=== PATIENT | female | born 1985 | race Two or more races ===

== ENCOUNTER 2024-02-03 20:14 | Emergency (ER) | payer MEDICAID, OTHER ==
[~2024-02-03] VITALS: Ht 149.9 cm; Wt 56.9 kg
[2024-02-03 20:22] VITALS: BP 124/77; PULSE 102; RESP 16; O2SAT 99
[2024-02-03 21:21] LABS: Urine Bacteria None Seen /hpf (None Seen)
[2024-02-03 21:26] LABS: Basophils # (auto) 0 10 ^3/uL (0-0.2); Basophils % (auto) 0.5 % (0.0-2.0); Eosinophils # (auto) 0.1 10 ^3/uL (0-0.8); Eosinophils % (auto) 1.1 % (0.0-7.0); Hemoglobin 12.3 g/dL (12.2-16.2); Lymphocytes # (auto) 1.6 10 ^3/uL (0.4-5.4); Lymphocytes % (auto) 24.7 % (10.0-50.0); Mean Corpuscular Hemoglobin 29.5 pg (28.0-32.0); Mean Corpuscular Hgb Conc. 33.2 g/dL (32.0-36.0); Mean Corpuscular Volume 88.9 fL (80.0-100.0); Monocytes # (auto) 0.6 10 ^3/uL (0-1.3); Monocytes % (auto) 9.2 % (0.0-12.0); Neutrophils # (auto) 4.2 10 ^3/uL (1.6-8.6); Neutrophils % (auto) 64.5 % (37.0-80.0); Platelet Count (auto) 296 10^3/uL (140-450); Red Blood Cells 4.16 10^6/uL (4.0-5.20); Red Cell Distribution Width 14.5 % (11.8-14.3); White Blood Cell 6.5 10^3/uL (4.4-10.8)
[2024-02-03 21:39] LABS: Alanine Aminotransferase 19 U/L (7-40); Alkaline Phosphatase 79 U/L (46-116); Anion Gap 8 (5-15); Aspartate Aminotransferase 13 U/L (13-40); BUN/Creatinine Ratio 15.1 (10.0-20.0); Bilirubin, Total 0.6 mg/dL (0.2-1.0); Blood Urea Nitrogen 13 mg/dL (9-23); Calcium 9.7 mg/dL (8.7-10.4); Carbon Dioxide 27 mmol/L (20-31); Chloride 103 mmol/L (98-107); Glucose 113 mg/dL (74-106); Potassium 3.3 mmol/L (3.5-5.1); Sodium 138 mmol/L (136-145)
[2024-02-03 21:40] LABS: Total Protein 7.8 g/dL (5.7-8.2)
[2024-02-03 21:41] LABS: Urine Blood 2+ /uL (Negative); Urine Clarity Clear (Clear); Urine Color Light-Yellow (Yellow); Urine Mucus FEW (None Seen); Urine Protein, UAD Negative (Negative); Urine Specific Gravity 1.024 (1.001-1.035); Urine Urobilinogen Normal (Negative); Urine WBC <1 /hpf (0 - 5)
== END 2024-02-04 01:31 | disposition home or self-care (01) ==
LOC: ER 20:14
DX: O34.81 Maternal care for other abnormalities of pelvic organs, first trimester (principal); R10.2 Pelvic and perineal pain; O34.11 Maternal care for benign tumor of corpus uteri, first trimester; O20.9 Hemorrhage in early pregnancy, unspecified; N83.202 Unspecified ovarian cyst, left side; E07.9 Disorder of thyroid, unspecified; Z3A.01 Less than 8 weeks gestation of pregnancy; Z98.890 Other specified postprocedural states
CPT/HCPCS: 36415; 76801; 76817; 80053; 81001; 84702; 85025; 86850; 86900; 86901

== ENCOUNTER 2024-02-08 06:51 | Emergency (ER) | payer MEDICAID ==
[~2024-02-08] VITALS: Ht 149.9 cm; Wt 60.6 kg
[2024-02-08 08:28] VITALS: BP 102/42; PULSE 87; RESP 16; TEMP 98.1; O2SAT 99
== END 2024-02-08 08:35 | disposition home or self-care (01) ==
LOC: ER 06:51
DX: O34.11 Maternal care for benign tumor of corpus uteri, first trimester (principal); R10.2 Pelvic and perineal pain; Z32.01 Encounter for pregnancy test, result positive; Z3A.01 Less than 8 weeks gestation of pregnancy
CPT/HCPCS: 36415; 84702